=== PATIENT | male | born 1945 | race Hispanic/Latino ===

== ENCOUNTER 2018-09-03 13:44 | Observation (INO) | payer MEDICARE ==
[~2018-09-03] VITALS: Ht 168.9 cm; Wt 83.2 kg
[~2018-09-03 13:44] MED LIST: ALIGN4 MG; ALIGN4 MG PO; ASACOL400 MG PO; CYCLOBENZAPRINE10 MG PO; DICYCLOMINE HCL10 MG PO; FLAGYL500 MG PO; GABAPENTIN300 MG PO; LEVAQUIN-D750 MG/150 PO; LEVAQUIN500 MG PO; METOPROLOL TART50 MG PO; METRONIDAZOLE500 MG PO; NEXIUM40 MG; PRAVASTATIN SOD80 MG PO; PREDNISONE20 MG PO
[2018-09-03] MEDS ORDERED: ASPIRIN 81 MG CHEW TAB PO STA (14:05)
[2018-09-03] MEDS ORDERED: NITROGLYCERIN 0.4 MG SUBL SL ONE (14:15)
[2018-09-03] MEDS ORDERED: NITROGLYCERIN 2% OINT 1 GM PKT TOP NR (14:45)
[2018-09-03 15:01] LABS: BASOPHILS % 0.3 % (0.0-1.0); EOSINOPHILS # (AUTO) 1.1 (0.0-0.4); EOSINOPHILS % 17.1 % (0.0-6.0); HEMATOCRIT 38.4 % (38.2-49.6); HEMOGLOBIN 13.3 g/dL (14.0-18.0); LYMPHOCYTES % 15.7 % (18.0-39.1); MEAN CORPUSCULAR HEMOGLOBIN 30.9 pg (28-32); MEAN CORPUSCULAR HGB CONC 34.6 g/dL (31-35); MEAN CORPUSCULAR VOLUME 89.3 fL (81-99); MONOCYTES # (AUTO) 0.2 (0.2-0.8); MONOCYTES % 3.7 % (4.4-11.3); NEUTROPHILS # (AUTO) 4.1 (2.1-6.9); NEUTROPHILS % 62.9 % (38.7-80.0); PLATELET COUNT 232 x10e3/uL (140-360); RED CELL DISTRIBUTION WIDTH 13.1 % (11.7-14.4)
[2018-09-03 15:09] LABS: INR 1.01; PROTHROMBIN TIME 14.2 seconds (11.9-14.5)
[2018-09-03 15:10] LABS: PARTIAL THROMBOPLASTIN TIME 30.1 seconds (23.8-35.5)
[2018-09-03 15:19] LABS: ALANINE AMINOTRANSFERASE 50 IU/L (0-55); ALBUMIN/GLOBULIN RATIO 1.5 (0.8-2.0); ALKALINE PHOSPHATASE 137 IU/L (40-150); ANION GAP 17.1 mmol/L (8-16); BLOOD UREA NITROGEN 9 mg/dL (7-26); BUN/CREATININE RATIO 11 (6-25); CALCIUM 9.2 mg/dL (8.4-10.2); CARBON DIOXIDE 25 mmol/L (22-29); CHLORIDE 100 mmol/L (98-107); CREATINE KINASE 170 IU/L (30-200); CREATININE, SERUM 0.83 mg/dL (0.72-1.25); EST GLOMERULAR FILTRATION RATE > 60 ML/MIN (60-); GLUCOSE 133 mg/dL (74-118); MAGNESIUM 1.7 MG/DL (1.3-2.1); POTASSIUM 3.1 mmol/L (3.5-5.1); SODIUM 139 mmol/L (136-145)
--- NOTE | 2018-09-03 15:46 | Diagnostic Imaging Report ---
EXAMINATION: CHEST SINGLE (PORTABLE) INDICATION: Chest pain. COMPARISON: Chest radiograph 06/09/2015. FINDINGS: TUBES and LINES: Left sided chest pad which partially obscures visualization of the lower chest. LUNGS: Lungs are well inflated. Mild central vascular congestion. Mild patchy left basilar opacity. No evidence of lobar pneumonia or pulmonary edema. PLEURA: No pleural effusion or pneumothorax. HEART AND MEDIASTINUM: The cardiomediastinal silhouette is unremarkable. The thoracic aorta is ectatic and tortuous. BONES AND SOFT TISSUES: No acute osseous lesion. Soft tissues are unremarkable. UPPER ABDOMEN: No free air under the diaphragm. IMPRESSION: No evidence of pneumothorax. Mild central vascular congestion without evidence of pulmonary edema. Left sided chest pad partially limits evaluation of the left lower lung. Mild patchy left basilar opacity likely atelectasis. Early pneumonia could have a similar appearance in the appropriate clinical setting. Follow-up chest radiograph is suggested. Signed by: Dr. Angelito Hameed MD on 09/03/2018 3:43 PM
[2018-09-03] MEDS ORDERED: POTASSIUM CHLORIDE 20 MEQ TAB CR PO NR (16:00)
--- OUTSIDE RECORDS SUMMARY | 2018-09-03 16:50 | XMS REPORT ---
Author Author [facility] Address Unknown Phone Unavailable Care Team Providers Care Project Analyst Name Role Phone Romario HO Unavailable Unavailable Problems This patient has no known problems. Allergies, Adverse Reactions, Alerts This patient has no known allergies or adverse reactions. Medications This patient has no known medications. Results Test Description Test Time Test Comments Text Results Atomic Results Result Comments CHEST SINGLE (PORTABLE) 2018-09-03 15:38:00 [place] [address] Patient Name: ANTONELLA ASHFORD MR #: [id number] : 1945 Age/Sex: 73/M Req #: [id number] Adm Physician: Ordered by: FROY LERNER CUSTOMER ENGAGEMENT ANALYST Report #: [id number] Location: ER Room/Bed: Procedure: [id number] DX/CHEST SINGLE (PORTABLE) Exam Date: 09/03/18 Exam Time: 1511 REPORT STATUS: Signed EXAMINATION: CHEST SINGLE (PORTABLE) I NDICATION: Chest pain. COMPARISON: Chest radiograph 06/09/2015. FINDINGS: TUBES and LINES: Left sided chest pad which partially obscures visualization of the lower chest. LUNGS: Lungs are well inflated. Mild central vascular congestion. Mild patchy left basilar opacity. No evidence of lobar pneumonia or pulmonary edema. PLEURA: No pleural effusion or pneumothorax. HEART AND MEDIASTINUM: The cardiomediastinal silhouette is unremarkable. The thoracic aorta is ectatic and tortuous. BONES AND SOFT TISSUES: No acute osseous lesion. Soft tissues are unremarkable. UPPER ABDOMEN: No free air under the diaphragm. IMPRESSION: No evidence of pneumothorax. Mild central vascular congestion without evidence of pulmonary edema. Left sided chest pad partially limits evaluation of the left lower lung. Mild patchy left basilar opacity likely atelectasis. Early pneumonia could have a similar appearance in the appropriate clinical setting. Follow-up chest radiograph is suggested. Signed by: Dr. Amber Mccartney MD on 09/03/2018 3:43 PM Dictated By: AMBER MCCARTNEY MD [id number] Transcribed By: JENI on 09/03/18 1543 COPY TO: FROY LERNER NP
[2018-09-03] MEDS: MORPHINE SULFATE INJ 4 MG/ML INJ 1ML IV PRN (17:30)
[2018-09-03] MEDS: METOPROLOL TARTRATE INJ 1 MG/ML VIAL IV SCH ×2 (17:34→18:45)
[2018-09-03] MEDS ORDERED: IOPAMIDOL 370 MG/ML 200 ML INFUS..BTL INJ ONE (17:37)
[2018-09-03] MEDS ORDERED: SODIUM CHLORIDE 0.9% 100 ML 100 ML ONE (17:37)
--- NOTE | 2018-09-03 18:01 | Diagnostic Imaging Report ---
EXAM: CTA of the Thoracic Aorta WITH Contrast INDICATION: ^R/O PE/DISSECTION COMPARISON: Chest xray . TECHNIQUE: Multi-detector CT technology was employed. CTA Gated axial imaging of the chest was performed after the administration of IV contrast. IV CONTRAST: 100 mL Isovue 370 ORAL CONTRAST: None COMPLICATIONS: None RADIATION DOSE: Total DLP: 963.33 mGy*cm Estimated effective dose: (DLP x 0.015 x size factor) mSv CTDIvol has been reviewed. It is below the limits set by the Radiation Protocol Committee (RPC). For optimization of anatomic evaluation, multiplanar reconstruction, maximum intensity projections, and advanced 3-D off-line postprocessing were performed on a dedicated stand-alone workstation under the direct supervision of the interpreting physician. FINDINGS: Potential study limitations: None. LINES/ TUBES: None. VASCULAR WITH ADVANCED 3-D OFF-LINE POSTPROCESSING: Aortic valve morphology is trileaflet and contains mild calcifications. The thoracic aorta is normal in course, caliber, and contour. There is no acute aortic pathology, such as dissection, intramural hematoma, or contained rupture. Aortic plaques: Moderate. The arch vessel branching pattern is conventional. All of the arch branch vessels appear widely patent in their proximal portions. Stars Coordinator dimensions of the thoracic aorta are as follows: 2.6 cm at the aortic annulus 3.5 cm at the sinuses of Valsalva (the sinotubular junction is preserved) 3.6 cm at the mid ascending aorta 3.7 cm at the distal ascending aorta 2.6 cm at the mid transverse arch 2.9 cm at the proximal descending thoracic aorta 2.8 cm at the diaphragmatic hiatus. LUNGS AND AIRWAYS: Bibasilar atelectasis and mild scarring. Airways are patent. PLEURA: The pleural spaces are clear.. HEART AND MEDIASTINUM: The thyroid gland is normal. No mediastinal, hilar or axillary lymphadenopathy. The main pulmonary artery is normal in size. The cardiac chambers demonstrate normal atrioventricular and ventriculoarterial concordance, and systemic and pulmonary venous return. The cardiac chambers are normal in size. The coronary arteries have normal origins and courses. There are moderate coronary calcifications identified, though this study was not optimized for coronary artery evaluation. There is no pericardial effusion. LIMITED ABDOMEN: Diffuse esophageal wall thickening. Mild wall thickening of the gastric antrum. BONES: Unremarkable. IMPRESSION: 1. Unremarkable thoracic aorta. There is no acute aortic pathology. 2. Diffuse esophageal wall thickening, consistent with esophagitis. 3. Mild gastric antral wall thickening. Signed by: Dr. Remy Rankin M.D. on 09/03/2018 5:57 PM
[2018-09-03] MEDS: METOPROLOL TARTRATE 50 MG TAB PO SCH (18:52)
[2018-09-03 19:52] LABS: BILIRUBIN,URINE NEGATIVE (NEGATIVE); CLARITY,URINE SL CLOUDY (CLEAR); COLOR,URINE YELLOW (YELLOW); KETONES,URINE 1+ (NEGATIVE); LEUKOCYTE ESTERASE ,URINE NEGATIVE (NEGATIVE); NITRITE,URINE NEGATIVE (NEGATIVE); PROTEIN,URINE DIPSTICK TRACE (NEGATIVE); URINE UROBILINOGEN 0.2 mg/dL (0.2 - 1)
[2018-09-03] MEDS: HYDRALAZINE HCL 20 MG/ML VIAL IV PRN (19:52)
[2018-09-03 19:57] LABS: AMPHETAMINES SCREEN,URINE NEGATIVE (NEGATIVE); PHENCYCLIDINE SCREEN,URINE NEGATIVE (NEGATIVE)
[2018-09-03 19:58] LABS: BENZODIAZEPINES SCREEN,URINE NEGATIVE (NEGATIVE)
[2018-09-03 20:02] LABS: BACTERIA,URINE FEW /HPF; EPITHELIAL CELLS,URINE MANY /LPF; MUCUS,URINE MANY (RARE)
[2018-09-03] MEDS ORDERED: ACETAMINOPHEN 325 MG TAB PO ONE (20:30)
[2018-09-03] MEDS ORDERED: CEFTRIAXONE SOD 1 GM/NS 50 ML 50 ML IV ONE (20:30)
[2018-09-03] MEDS ORDERED: ONDANSETRON HCL INJ 2MG/ML 2ML 2 MG/ML VIAL IV NR ×2 (21:00→21:15)
--- NOTE | 2018-09-03 21:17 | NUR ---
PT PLACED ONTO 3L NC FOR SATS OF 85% SATS NOW 95% WILL CONTINUE TO MONITOR
[2018-09-03] MEDS ORDERED: IBUPROFEN 600 MG TAB PO STA (21:56)
--- NOTE | 2018-09-03 22:00 | NUR ---
SPOKE TO ADMITTING PHYSICIAN, DR. GURROLA, NEW ORDER RECEIVED FOR TYLENOL 650 MG PO Q 6 HRS PRN FOR FEVER
[2018-09-03 23:45] VITALS: BP 138/72
[2018-09-04] VITALS (7 sets, daily range): BP systolic 120–181; BP diastolic 70–97
[2018-09-04] MEDS: METOPROLOL TARTRATE INJ 1 MG/ML VIAL IV SCH ×2 (05:15)
[2018-09-04 05:43] LABS: BASOPHILS % 0.2 % (0.0-1.0); EOSINOPHILS # (AUTO) 0.6 (0.0-0.4); EOSINOPHILS % 13.4 % (0.0-6.0); HEMOGLOBIN 11.8 g/dL (14.0-18.0); LYMPHOCYTES # (AUTO) 0.7 (1.0-3.2); LYMPHOCYTES % 16.2 % (18.0-39.1); MEAN CORPUSCULAR HEMOGLOBIN 30.7 pg (28-32); MEAN CORPUSCULAR HGB CONC 33.7 g/dL (31-35); MEAN CORPUSCULAR VOLUME 91.1 fL (81-99); MONOCYTES # (AUTO) 0.3 (0.2-0.8); MONOCYTES % 5.9 % (4.4-11.3); NEUTROPHILS # (AUTO) 2.7 (2.1-6.9); NEUTROPHILS % 63.8 % (38.7-80.0); PLATELET COUNT 189 x10e3/uL (140-360); RED BLOOD COUNT 3.84 x10e6/uL (4.3-5.7); RED CELL DISTRIBUTION WIDTH 13.3 % (11.7-14.4)
[2018-09-04 06:04] LABS: ANION GAP 14.1 mmol/L (8-16); BLOOD UREA NITROGEN 10 mg/dL (7-26); BUN/CREATININE RATIO 11 (6-25); CALCIUM 8.7 mg/dL (8.4-10.2); CARBON DIOXIDE 26 mmol/L (22-29); CHLORIDE 99 mmol/L (98-107); CHOL/HDL RATIO 4.3 (3.9-4.7); CHOLESTEROL 142 MD/DL (0-199); CREATININE, SERUM 0.93 mg/dL (0.72-1.25); EST GLOMERULAR FILTRATION RATE > 60 ML/MIN (60-); GLUCOSE 88 mg/dL (74-118); HDL CHOLESTEROL 33 MG/DL (40-60); LDL CHOLESTEROL 95 MG/DL (60-130); LIPASE 8 U/L (8-78); MAGNESIUM 1.5 MG/DL (1.3-2.1); POTASSIUM 3.1 mmol/L (3.5-5.1); SODIUM 136 mmol/L (136-145); TRIGLYCERIDES 72 MG/DL (0-149)
[2018-09-04] MEDS: METOPROLOL TARTRATE 50 MG TAB PO SCH ×2 (08:17→08:29)
[2018-09-04] MEDS: ACETAMINOPHEN 325 MG TAB PO PRN ×2 (08:29→16:29)
--- NOTE | 2018-09-04 09:23 | Consultation ---
DATE OF CONSULTATION: 09/03/2018 Cardiology Consultation REASON FOR CONSULTATION: Chest pain. HISTORY OF PRESENT ILLNESS: Mr. Faulkner is a 73-year-old male with history of dyslipidemia, diverticulosis, status post prior exploratory laparotomy, chronic intermittent headaches for which he is undergoing outpatient evaluation, who presents with complaints of chest discomfort, worse with deep inspiration and with changes in position to lying down, symptoms have been ongoing for over 30 minutes prior to arrival, and described as severe. CTA chest has been ordered and pending, so as the echocardiogram. Initial cardiac enzymes were negative. EKG showed sinus tachycardia with nonspecific repolarization abnormality. He is undergoing pain management as well as antihypertensive medications. He denies any syncope, palpitations, or other complaints at this time. REVIEW OF SYSTEMS: A 12-system review is negative except for as noted above. PAST MEDICAL HISTORY: As per HPI. SOCIAL HISTORY: Denies active smoking, alcohol, or drugs. FAMILY HISTORY: Noncontributory. PHYSICAL EXAMINATION: VITAL SIGNS: Afebrile, heart rate 110, blood pressure 170/100, respiratory rate is 22, O2 sat 99%. GENERAL: In mild distress, in active pain. Alert and oriented x3. NECK: No JVD. No carotid bruits. CHEST: Clear to auscultation. CARDIOVASCULAR: Tachycardic. Regular rate and rhythm. Normal S1 and S2. No S3. No S4. ABDOMEN: Soft. EXTREMITIES: No edema, warm distal extremities. LABORATORY DATA: Studies reviewed. EKG as described above. Creatinine is 0.8. Hemoglobin 13.3, white blood cells 6.5, platelet count 231. AST 87, ALT 50. ASSESSMENT: 1. Chest pain, pleuritic features. 2. Uncontrolled hypertension. 3. History of chronic headaches. 4. Dyslipidemia. 5. History of diverticulosis. RECOMMENDATIONS: 1. CTA chest, PE protocol. Orders are pending. 2. Echocardiogram. Orders are pending. 3.On tele sinus tachycardia, no arrhythmias. Continue to monitor. 4. Pain control, ongoing. 5. Serial cardiac enzymes. 6. Trial NSAIDs. Differential includes pericarditis and pleurisy. We will follow closely. Lucas Zuleta MD [facility]/MODL /[id number] MTDD
--- NOTE | 2018-09-04 10:37 | NUR ---
SOCIAL WORK INITIAL ASSESSMENT Lay Out Technician to bedside to discuss plan of care with patient/family. CM/SW role and care transitions discussed. Anticipated discharge plan discussed along with duration of care. CM/SW discussed patients right to make decisions in care. CM/SW work hours given. Patient lives: IN HOUSE WITH FAMILY Admit/Transfer: VIA ED POA/Emergency contact: ESTEFANI [phone] Current/Previous Home Health: NONE PCP/Follow-up Care: IVONNE Current/Previous DME: NONE Other Services: NONE Employment Status: RETIRED Areas of Concerns: NONE Referral Needs: NONE Education Needs: NONE IMM/MONSON given and signed (if applicable): MONSON Goal for discharge: RETURN HOME CM/SW left business card at the bedside with contact information. Name and number was also written on the patients whiteboard. Patient verbalized understanding of discussion. CM will follow-up with ongoing discharge and transition of care needs.
--- NOTE | 2018-09-04 10:38 | NUR ---
POST DISCHARGE STATUS FORM FILED ON CHART TO RETURN HOME NO NEEDS
[2018-09-04] MEDS ORDERED: POTASSIUM CHLORIDE 20 MEQ TAB CR PO STA (10:50)
[2018-09-04] MEDS ORDERED: MAGNESIUM SULFATE 2GM/50ML 50 ML IV ONE (11:00)
[2018-09-04] MEDS: BENZONATATE 100 MG CAP PO SCH ×2 (11:25→21:22)
[2018-09-04] MEDS: PANTOPRAZOLE SOD 40 MG TABEC PO SCH ×2 (11:25→16:26)
[2018-09-04] MEDS ORDERED: SODIUM CHLORIDE 0.9% 250ML 250 ML ONE (12:31)
--- NOTE | 2018-09-04 13:04 | Diagnostic Imaging Report ---
History:Chronic headache Comparison studies:None Technique: Axial images were obtained from the skull base to the vertex. Coronal and sagittal images reconstructed from the axial data. Intravenous contrast: None Dose modulation, iterative reconstruction, and/or weight based adjustment of the mA/kV was utilized to reduce the radiation dose to as low as reasonably achievable. Findings: Scalp/skull: No abnormalities. Extra-axial spaces: No masses. No fluid collections. Brain sulci: Age-appropriate Ventricles: Age-appropriate. No hydrocephalus. Parenchyma: Few hypodensities in the supratentorial white matter are small vessel ischemic changes. Small chronic lacunar infarcts at the bilateral anterior subinsular regions. No masses, hemorrhage, acute or chronic cortical vascular insults. Sellar/suprasellar region: No abnormalities. Craniocervical junction: Patent foramen magnum. No Chiari one malformation. Incidental findings: Atherosclerotic calcifications in the carotid siphons . Impression: No acute abnormalities. Chronic findings: Mild supratentorial white matter small vessel ischemic changes. Signed by: DR Mohamud Mendez M.D. on 09/04/2018 1:01 PM
--- NOTE | 2018-09-04 15:29 | Progress Note ---
DATE: 09/04/2018 Cardiology Progress Note SUBJECTIVE: No new complaints today. Chest discomfort improved. OBJECTIVE: VITAL SIGNS: Temperature 98.2, heart rate 84, blood pressure 155/92, respiratory rate 18, and O2 saturation 98%. GENERAL: No acute distress. Pain improved. CHEST: Clear to auscultation. CARDIOVASCULAR: Regular rate and rhythm. Normal S1 and S2. No S3. No S4. ABDOMEN: Soft, nontender. EXTREMITIES: No edema. MEDICATIONS: Cardiovascular medications reviewed. Metoprolol tartrate 50 mg every 12 hours and p.r.n. IV metoprolol 5 every 6 hours, and hydralazine 10 every 4 hours. LABORATORY STUDIES: Reviewed. Sodium 136, potassium 3.1, chloride 99, bicarbonate 26, BUN 10, creatinine 0.9, and glucose 88. White blood cells 4.2, hemoglobin 11.8, and platelets are 189. INR 1. AST 87 and ALT 50. Total bilirubin 0.6. ASSESSMENT: 1. Chest pain, atypical. 2. CT scan with esophageal thickening, concerning for esophagitis. 3. Hypertension. 4. Diverticulosis. RECOMMENDATIONS: 1. Pain control better. Continue current care. 2. Consider GI consultation. 3. If negative GI evaluation, due to pleuritic features for chest discomfort, can consider a trail of NSAIDs. 4. No PE on CT. 5. Preserved left ventricular systolic function with no significant pericardial effusion noted. MD MAN Mora/HOWIE /[id number]
--- NOTE | 2018-09-04 19:00 | NUR ---
Received report from previous nurse. family at bedside. Call alejandro within reach.
[2018-09-04] MEDS: MORPHINE SULFATE INJ 4 MG/ML INJ 1ML IV PRN (19:22)
[2018-09-05] VITALS: BP 195/101
--- NOTE | 2018-09-05 00:15 | NUR ---
Dr. Adiel Noonan called to get consent for EGD
[2018-09-05 04:00] VITALS: BP 192/109
[2018-09-05 05:59] LABS: BLOOD UREA NITROGEN 10 mg/dL (7-26); CALCIUM 8.5 mg/dL (8.4-10.2); CARBON DIOXIDE 24 mmol/L (22-29); EST GLOMERULAR FILTRATION RATE > 60 ML/MIN (60-); GLUCOSE 81 mg/dL (74-118); POTASSIUM 3.2 mmol/L (3.5-5.1); SODIUM 134 mmol/L (136-145)
[2018-09-05 06:47] LABS: ANION GAP 15.2 mmol/L (8-16); BUN/CREATININE RATIO 13 (6-25); CHLORIDE 103 mmol/L (98-107); CREATININE, SERUM 0.82 mg/dL (0.72-1.25)
--- NOTE | 2018-09-05 06:52 | NUR ---
Report given to oncoming nurse. No pain or distress. Call light within reach.
[2018-09-05] MEDS: HYDRALAZINE HCL 20 MG/ML VIAL IV PRN (07:07)
[2018-09-05] MEDS ORDERED: SIMETHICONE 40 MG/0.6 ML BTL ONE (07:35)
[2018-09-05 07:46] VITALS: BP 183/92
--- NOTE | 2018-09-05 07:52 | NUR ---
Pt was transferred to OR this morning at 0710, for EGD to be done by Dr. Adiel Noonan. Pt BP was elevated 181/95 HR-94 and hydralazine 10mg IV x1 was given by tester armature or fields nurse. Pt is aox4 and able to verbalize needs.
[2018-09-05 08:00] VITALS: BP 183/92
[2018-09-05] MEDS ORDERED: METOPROLOL TARTRATE 50 MG TAB PO SCH ×2 (09:00→21:00)
[2018-09-05] MEDS: PANTOPRAZOLE SOD 40 MG TABEC PO SCH (09:19)
[2018-09-05] MEDS: BENZONATATE 100 MG CAP PO SCH (09:19)
[2018-09-05] MEDS: ACETAMINOPHEN 325 MG TAB PO PRN (11:15)
[2018-09-05] MEDS ORDERED: POTASSIUM CHLORIDE 20 MEQ TAB CR PO NR (11:30)
[2018-09-05 11:34] VITALS: BP 170/100
[2018-09-05] MEDS ORDERED: METOPROLOL TARTRATE 50 MG TAB PO NR (12:00)
[2018-09-05] MEDS ORDERED: METOPROLOL TART50 MG PO (13:56)
[2018-09-05] MEDS ORDERED: PANTOPRAZOLE SO40 MG PO (13:57)
--- NOTE | 2018-09-05 14:40 | NUR ---
Pt discharged at this time. Discharge instructions given to and patient and verbalized understanding. Prescriptions given to patient.
[2018-09-05] MEDS ORDERED: PROPOFOL IV EMULSION 10 MG/ML 50 ML VIAL ONE (17:13)
[2018-09-05] MEDS ORDERED: LIDOCAINE HCL 2% LOCAL INJ 5 ML SDV VIAL INJ ONE (17:13)
--- NOTE | 2018-09-05 17:49 | Operative Report ---
DATE OF PROCEDURE: 09/05/2018 PROCEDURE: EGD with esophageal dilatation over a wire and a pyloric channel dilatation per TTS balloon dilators and biopsies. INDICATIONS FOR PROCEDURE: Noncardiac chest pain, dysphagia, thickened esophagus on CT scan. MEDICATIONS: The patient was done under MAC. Please see anesthesiologist's note. DESCRIPTION OF PROCEDURE: With the patient in the left lateral decubitus position, a flexible fiberoptic Olympus gastroscope was introduced into the esophagus under direct visualization without any difficulty. There was some diffuse erythema noted in the distal esophagus. A moderate-sized diverticulum was noted at approximately 32 cm from the incisors. Esophagus was dilated to size 16 Savary over a wire. The scope was then advanced with ease into the stomach. Mucosa overlying the antrum and the body revealed some patchy erythema and low-grade edema and biopsies were obtained and sent to stain for H pylori. The pylorus was strictured and was traversed with difficulty with the scope. It was dilated to size 20 mm per TTS balloon dilators. The scope then was advanced with ease all the way into the second portion of the duodenum. The scope was then withdrawn slowly. Mucosa overlying the proximal second portion appeared to be within normal limits. There was a nodule in the duodenal bulb along the anterior wall that was biopsied. The scope was then withdrawn back into the stomach and retroflexed. Mucosa overlying the fundus and the cardia appeared to be within normal limits. The scope was then straightened out and was subsequently withdrawn. The patient tolerated the procedure well. IMPRESSION: 1. Moderate-sized esophageal diverticulum at 32 cm from the incisors. 2. Esophagitis. 3. Esophagus dilated to size 16 Savary over a wire. 4. Gastritis, biopsied. Biopsies sent to stain for Helicobacter pylori. 5. Pyloric channel stricture dilated to size 20 mm per TTS balloon dilators. 6. Duodenal bulb nodule biopsy. PLAN: Followup pathology. Continue current therapy. Resume cardiac diet. Pérez Noonan MD [facility] [place][id number] cc: Charissa Martel MD
--- NOTE | 2018-09-06 06:36 | Discharge Summary ---
PRIMARY CARE PHYSICIAN: Eloy Amanda MD with [facility]. FINAL DIAGNOSES: Esophageal stricture, esophagitis, and pyloric stenosis. SECONDARY DIAGNOSES: 1. Chronic headache. 2. Uncontrolled hypertension. CONSULTANTS: 1. Dr. Garrett, Cardiology. 2. Dr. Montilla, GI. PROCEDURES/STUDIES PERFORMED: 1. EGD. 2. Head CT. 3. CT of the chest. HISTORY: Per H and P. HOSPITAL COURSE: The patient was admitted. His troponins were negative x3, therefore, no acute myocardial infarction. CTA of the chest was done, which shows esophagitis. There was some clinical suspicion initially of pericarditis, however, we do not want to just give him NSAIDs without knowing how severe the esophagitis is. Therefore, EGD was done, which shows esophagitis, esophageal stricture, and pyloric stenosis, both were dilated. Subsequently, the patient felt much better. He can take his pills better. As far as his uncontrolled hypertension, we will increase his metoprolol to 100 mg b.i.d. The patient also has this chronic headache, head CT was done, which did not show any acute disease. Unfortunately, he cannot take any NSAIDs for it. Potentially, it was a cough that made it worse. His cough is likely due to the reflux, likely due to stenosis. I told him that if his headache does not get better in a couple of weeks, he should get a referral to see a [facility] neurologist. The patient was seen and examined today. CONDITION ON DISCHARGE: Improved. DISCHARGE MEDICATIONS: Please see medication reconciliation form. Heydiching MD OMI Stringer/YONYL /[id number] cc: Eloy Amanda MD
== END 2018-09-05 14:40 | disposition home or self-care (01) ==
LOC: ER 13:44 → ERHOLD 16:33 → IMCU 23:33
PROVIDERS: ADMIT Internal Medicine; ATTEND Internal Medicine
DX: K22.2 Esophageal obstruction (principal); K31.1 Adult hypertrophic pyloric stenosis; R51 Headache; E87.6 Hypokalemia; I10 Essential (primary) hypertension; E78.5 Hyperlipidemia, unspecified; K57.90 Diverticulosis of intestine, part unspecified, without perforation or abscess without bleeding; K29.70 Gastritis, unspecified, without bleeding; K20.9 Esophagitis, unspecified; K63.89 Other specified diseases of intestine; E83.42 Hypomagnesemia
CPT/HCPCS: 36415 ×3; 43239; 43245; 43248; 70450; 71045; 71275; 80048 ×2; 80053; 80061; 80307; 81001; 82550; 82553; 83036; 83605; 83690; 83735 ×2; 83880; 84443; 84484 ×2; 85025 ×2; 85610; 85730; 87040; 87400; 88305; 88312; 93005; 99284; C1726; G0378 ×3; J0360 ×2; J0696; J2001; J2270 ×3; J2405; J2704; J3475; J7050; Q9967; S0164 ×2; 43233

== ENCOUNTER 2018-12-25 09:49 | Emergency (ER) | payer SELFPAY ==
[~2018-12-25] VITALS: Ht 168.9 cm; Wt 83.0 kg
[~2018-12-25 09:49] MED LIST changes: +PANTOPRAZOLE SO40 MG PO
[2018-12-25] MEDS ORDERED: IBUPROFEN 600 MG TAB PO STA (10:35)
--- NOTE | 2018-12-25 10:51 | NUR ---
PATIENT GIVEN WARM BLANKET AT THIS TIME. PATIENT AND FAMILY UPDATED ON PLAN OF CARE. AWAITING XRAYS AT THIS TIME
--- NOTE | 2018-12-25 10:59 | NUR ---
PATIENT TO RADIOLOGY AT THIS TIME
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
== END 2018-12-25 13:20 | disposition home or self-care (01) ==
LOC: ER 09:49
DX: S16.1XXA Strain of muscle, fascia and tendon at neck level, initial encounter (principal); V43.62XA Car passenger injured in collision with other type car in traffic accident, initial encounter; Y93.89 Activity, other specified; Y92.410 Unspecified street and highway as the place of occurrence of the external cause; Z91.048 Other nonmedicinal substance allergy status; I10 Essential (primary) hypertension; E78.5 Hyperlipidemia, unspecified; K21.9 Gastro-esophageal reflux disease without esophagitis; Z83.3 Family history of diabetes mellitus; Z82.49 Family history of ischemic heart disease and other diseases of the circulatory system
CPT/HCPCS: 71046; 72050; 99283

== ENCOUNTER 2023-11-27 17:09 | Emergency (ER) | payer MEDICARE ==
[~2023-11-27] VITALS: Ht 167.6 cm; Wt 87.1 kg
[2023-11-27] MEDS ORDERED: SODIUM CHLORIDE 0.9% 100 ML ONE (18:03)
[2023-11-27] MEDS ORDERED: IOPAMIDOL 370 MG/ML 100 ML INFUS..BTL INJ ONE (18:04)
[2023-11-27] MEDS ORDERED: ONDANSETRON HCL INJ 2MG/ML 2ML 2 MG/ML VIAL ONE (18:23)
[2023-11-27] MEDS: ONDANSETRON HCL INJ 2MG/ML 2ML 2 MG/ML VIAL IV STA (18:23)
[2023-11-27] MEDS ORDERED: SODIUM CHLORIDE 0.9% 1000ML 1,000 ML ONE (18:23)
[2023-11-27] MEDS: SODIUM CHLORIDE 0.9% 1000ML 1,000 ML IV ONE (18:24)
[2023-11-27] MEDS: Morphine 4mg INJECTION 4 MG/ML INJ IV ONE (18:24)
[2023-11-27 18:45] VITALS: BP 126/71; PULSE 72; RESP 16
[2023-11-27] MEDS ORDERED: FAMOTIDINE 20 MG/2 ML VIAL IV ONE (20:01)
[2023-11-27] MEDS: FAMOTIDINE 20 MG/2 ML VIAL IV STA (20:09)
[2023-11-27 23:08] VITALS: O2SAT 99
== END 2023-11-27 23:30 | disposition other institution (70) ==
LOC: FSED 17:10
DX: R07.9 Chest pain, unspecified (principal); I71.43 Infrarenal abdominal aortic aneurysm, without rupture; K20.90 Esophagitis, unspecified without bleeding; R91.8 Other nonspecific abnormal finding of lung field; M54.6 Pain in thoracic spine; I10 Essential (primary) hypertension; E78.5 Hyperlipidemia, unspecified; K21.9 Gastro-esophageal reflux disease without esophagitis; Z87.19 Personal history of other diseases of the digestive system
CPT/HCPCS: 71045; 71275; 74174; 80053; 84484; 85025; 85379; 85610; 93005; 99284; J2270; J2405; J7030; J7050; Q9967

== ENCOUNTER 2025-04-18 10:41 | Inpatient (IN) | payer MEDICARE ==
[~2025-04-18] VITALS: Ht 167.6 cm; Wt 83.9 kg
[2025-04-18 12:21] LABS: BASOPHILS % 0.7 % (0.0-1.0); EOSINOPHILS % 16.6 % (0.0-6.0); LYMPHOCYTES % 25.9 % (18.0-39.1); MONOCYTES % 6.8 % (4.4-11.3); NEUTROPHILS % 49.7 % (38.7-80.0); RED CELL DISTRIBUTION WIDTH 12.1 % (11.7-14.4)
[2025-04-18 12:35] LABS: INR 1.0
[2025-04-18 12:39] LABS: CORONAVIRUS COVID-19 AG NEGATIVE (NEGATIVE)
[2025-04-18] MEDS: SODIUM CHLORIDE 0.9% 1000ML 1,000 ML IV STA (12:41)
[2025-04-18] MEDS: ENOXAPARIN SODIUM INJ 100 MG/ML SYR SC ONE (12:41)
[2025-04-18 12:44] LABS: EST GLOMERULAR FILTRATION RATE 64.0 ML/MIN (>=60)
[2025-04-18] MEDS ORDERED: IOPAMIDOL 370 MG/ML 100 ML INFUS..BTL INJ ONE (13:08)
[2025-04-18] MEDS ORDERED: SODIUM CHLORIDE 0.9% 1000ML 1,000 ML IV SCH (14:00)
[2025-04-18] MEDS ORDERED: ONDANSETRON HCL INJ 2MG/ML 2ML 2 MG/ML VIAL IV PRN ×2 (14:00→17:15)
[2025-04-18 15:42] VITALS: PULSE 74; RESP 18; TEMP 98.3
[2025-04-18] MEDS ORDERED: POTASSIUM CHLORIDE 20 MEQ TAB CR PO PRN (17:15)
[2025-04-18] MEDS ORDERED: MELATONIN 5 MG TABLET PO PRN (17:15)
[2025-04-18] MEDS ORDERED: ALBUTEROL/IPRATROPIUM 3 ML NEB NEB PRN (17:15)
[2025-04-18] MEDS ORDERED: HYDRALAZINE HCL 20 MG/ML VIAL IV PRN (17:15)
[2025-04-18] MEDS ORDERED: BENZONATATE 100 MG CAP PO PRN (17:15)
[2025-04-18] MEDS ORDERED: DEXTROSE 50% SYRINGE 50 ML IV PRN (17:15)
[2025-04-18] MEDS ORDERED: LIDOCAINE 4% PATCH TP PRN (17:15)
[2025-04-18] MEDS ORDERED: DOCUSATE SODIUM 100 MG CAP PO PRN (17:15)
[2025-04-18] MEDS ORDERED: SIMETHICONE 80 MG CHEW PO PRN (17:15)
[2025-04-18] MEDS ORDERED: ATORVASTATIN CA40 MG PO (18:17)
[2025-04-18] MEDS ORDERED: NIFEDIAC CC60 MG PO (18:17)
[2025-04-18] MEDS ORDERED: MAGNESIUM250 M2 PO (18:17)
[2025-04-18] MEDS ORDERED: LISINOPRIL40 MG PO (18:17)
[2025-04-18 18:19] VITALS: BP 135/77; PULSE 61; RESP 18; TEMP 97.6; O2SAT 99
[2025-04-18 18:26] VITALS: BP 135/77; PULSE 61; RESP 18; TEMP 97.6; O2SAT 99
[2025-04-18] MEDS: FUROSEMIDE INJ 10 MG/ML 4 ML VIAL IV ONE (18:29)
[2025-04-18] MEDS: IPRATROPIUM BROMIDE 0.02% 2.5 ML NEB NEB SCH (19:00)
[2025-04-18 21:26] VITALS: BP 119/80; PULSE 70; RESP 17; TEMP 97.6; O2SAT 99
[2025-04-18 23:12] VITALS: BP 119/80; PULSE 70; RESP 17; TEMP 97.6; O2SAT 99
[2025-04-18 23:13] VITALS: BP 119/80; PULSE 70; RESP 17; TEMP 97.6; O2SAT 99
[2025-04-18] MEDS: ACETAMINOPHEN 325 MG TAB PO PRN (23:52)
[2025-04-19] VITALS (8 sets, daily range): BP systolic 92–137; BP diastolic 64–87; PULSE 67–92; RESP 16–21; TEMP 97.5–97.9; O2SAT 92–99
[2025-04-19 05:52] LABS: BASOPHILS % 0.5 % (0.0-1.0); EOSINOPHILS % 13.8 % (0.0-6.0); LYMPHOCYTES % 29.7 % (18.0-39.1); MONOCYTES % 7.1 % (4.4-11.3); NEUTROPHILS % 48.7 % (38.7-80.0); RED CELL DISTRIBUTION WIDTH 12.3 % (11.7-14.4)
[2025-04-19 06:08] LABS: CHOL/HDL RATIO 4.4 (3.9-4.7); LDL CHOLESTEROL 98.0 MG/DL (60-130); PHOSPHORUS 4.8 MG/DL (2.3-4.7)
[2025-04-19 06:12] LABS: EST GLOMERULAR FILTRATION RATE 53.0 ML/MIN (>=60)
[2025-04-19] MEDS ORDERED: LISINOPRIL 20 MG TAB PO SCH (09:00)
[2025-04-19] MEDS: PANTOPRAZOLE SOD 40 MG TABEC PO SCH (09:13)
[2025-04-19] MEDS: HYDROCODONE/APAP 5MG-325MG TAB PO PRN (11:53)
[2025-04-19] MEDS: SODIUM CHLORIDE 0.9% 1000ML 1,000 ML IV SCH (16:22)
[2025-04-19] MEDS: ENOXAPARIN SOD INJ 40 MG/0.4 ML SYR SC SCH (16:23)
[2025-04-19] MEDS: PRIMIDONE 50 MG TAB PO SCH (16:23)
[2025-04-19 16:32] LABS: % IRON SATURATION 24 % (15-50)
[2025-04-19] MEDS: ROPINIROLE HCL 1 MG TAB PO SCH (20:20)
[2025-04-19] MEDS: ATORVASTATIN 40 MG TAB PO SCH (20:20)
[2025-04-20] VITALS (15 sets, daily range): BP systolic 103–159; BP diastolic 68–85; PULSE 66–89; RESP 17–21; TEMP 97.1–98.1; O2SAT 95–99
[2025-04-20 05:03] LABS: BASOPHILS % 0.7 % (0.0-1.0); EOSINOPHILS % 13.9 % (0.0-6.0); LYMPHOCYTES % 27.7 % (18.0-39.1); MONOCYTES % 5.7 % (4.4-11.3); NEUTROPHILS % 51.7 % (38.7-80.0); RED CELL DISTRIBUTION WIDTH 12.3 % (11.7-14.4)
[2025-04-20 05:26] LABS: EST GLOMERULAR FILTRATION RATE 52.0 ML/MIN (>=60); PHOSPHORUS 3.8 MG/DL (2.3-4.7)
[2025-04-20] MEDS: DIPHENHYDRAMINE HCL 25 MG CAP PO PRN (10:51)
[2025-04-20] MEDS ORDERED: SODIUM CHLORIDE 0.9% 1000ML 1,000 ML IV SCH (12:45)
[2025-04-20] MEDS: SODIUM CHLORIDE 0.9% 1000ML 1,000 ML IV SCH (13:07)
[2025-04-21] VITALS (7 sets, daily range): BP systolic 128–154; BP diastolic 82–88; PULSE 61–74; RESP 16–19; TEMP 97.5–98.1; O2SAT 95–99
[2025-04-21 05:00] LABS: BASOPHILS % 1.1 % (0.0-1.0); EOSINOPHILS % 14.3 % (0.0-6.0); LYMPHOCYTES % 27.0 % (18.0-39.1); MONOCYTES % 6.2 % (4.4-11.3); NEUTROPHILS % 51.0 % (38.7-80.0); RED CELL DISTRIBUTION WIDTH 12.1 % (11.7-14.4)
[2025-04-21 05:26] LABS: EST GLOMERULAR FILTRATION RATE 71.0 ML/MIN (>=60)
[2025-04-21] MEDS ORDERED: ASPIRIN EC81 MG PO (16:26)
== END 2025-04-21 17:30 | disposition home or self-care (01) | DRG 204 ==
LOC: ER 10:49 → ERHOLD 13:46 → MED/SURG 16:15
PROVIDERS: ADMIT Internal Medicine; ATTEND Internal Medicine
DX: R06.03 Acute respiratory distress (principal); I63.81 Other cerebral infarction due to occlusion or stenosis of small artery; N17.9 Acute kidney failure, unspecified; T45.516A Underdosing of anticoagulants, initial encounter; K21.9 Gastro-esophageal reflux disease without esophagitis; E78.5 Hyperlipidemia, unspecified; I71.40 Abdominal aortic aneurysm, without rupture, unspecified; K76.0 Fatty (change of) liver, not elsewhere classified; R26.9 Unspecified abnormalities of gait and mobility; I25.10 Atherosclerotic heart disease of native coronary artery without angina pectoris; I11.9 Hypertensive heart disease without heart failure; H81.10 Benign paroxysmal vertigo, unspecified ear; G89.29 Other chronic pain; M19.90 Unspecified osteoarthritis, unspecified site; M48.061 Spinal stenosis, lumbar region without neurogenic claudication; M47.892 Other spondylosis, cervical region; G25.81 Restless legs syndrome; G25.0 Essential tremor; I25.2 Old myocardial infarction; Z11.52 Encounter for screening for COVID-19; Z86.718 Personal history of other venous thrombosis and embolism; Z79.01 Long term (current) use of anticoagulants; Z91.141 Patient's other noncompliance with medication regimen due to financial hardship; Y92.009 Unspecified place in unspecified non-institutional (private) residence as the place of occurrence of the external cause; Z90.49 Acquired absence of other specified parts of digestive tract; Z91.048 Other nonmedicinal substance allergy status; Z86.73 Personal history of transient ischemic attack (TIA), and cerebral infarction without residual deficits
CPT/HCPCS: 36415; 70450; 70551; 71045; 71260; 72125; 72128; 72131; 76770; 80048; 80053; 80061; 82550; 83036; 83540; 83735; 83880; 84100; 84443; 84466; 84484; 85025; 85379; 85610; 85730; 93005; 93306; 93880; 93970; 94640; 94799; 99284; J1650; J1938; J2470; J7030; Q9967